=== PATIENT | female | born 1965 | race Caucasian/White ===

== ENCOUNTER → 2017-08-25 | Outpatient (CLI) | payer OTHER ==
--- NOTE | 2017-08-26 05:51 | RAD ---
Examination: Lumbar spine, five views History: Low back pain Findings: Normal appearance of vertebrae, disc spaces and sacroiliac joints. No fracture, bone destru ction or significant degenerative disease. Impression: No acute or significant lumbar abnormality demonstrated. Reported By:
== END ==
LOC: RAD 16:54
PROVIDERS: ATTEND Specialist
DX: M54.5 Low back pain (principal)
CPT/HCPCS: 72110